=== PATIENT | male | born 1985 | race Caucasian/White ===

== ENCOUNTER 2023-07-18 06:48 | Outpatient (CLI) | payer BC, SELFPAY ==
--- NOTE | ~2023-07-18 | CT_ITS ---
EXAMINATION: CT abdomen pelvis w con DATE: 07/18/2023 07:25 INDICATION: Upper abdominal pain radiating to the right TECHNIQUE: Computed tomography (CT) of the abdomen and pelvis was performed with 100 CC Omnipaque 350 intravenous contrast. Automated exposure control and iterative reconstruction technique were employe d. Exam dose: 520.32 mGy-cm total exam DLP. COMPARISON: 03/20/2011 CT abdomen pelvis FINDINGS: Lung bases are clear. Normal heart size. No pericardial or pleural effusion. The gallbladder is contracted. No pericholecystic fluid or fat stranding. No hepatic, splenic, pancreatic, adrenal or renal space-occupying mass lesion is detected. No bile duct or pancreatic duct dilatation. No urinary tract calculus or hydroureteronephrosis. Normal caliber of the abdominal aorta. No intraperitoneal or retroperitoneal or pelvic mass lesion or adenopathy or ascites. The urinary bladder and prostate gland are unremarkable. Normal appendix. No bowel obstruction, bowel wall thickening, pneumatosis or intraperitoneal free air . Very small fat-containing umbilical hernia. Transitional lumbosacral vertebra. No suspicious osteolytic or osteoblastic lesions. IMPRESSION: Contracted gallbladder. Nonfasting gallbladder ultrasound examination would be more sens itive for detection of gallstones, gallbladder wall disease Normal appendix Reviewed, dictated and finalized at Location [facility]. Reviewed, dictated and finalized at location B. TENANCE MANAGER IMPRESSION: Contracted gallbladder. Nonfasting gallbladder ultrasound examinat ion would be more sensitive for detection of gallstones, gallbladder wall disea se Normal appendix
== END 2023-07-18 06:49 | disposition home or self-care (01) ==
PROVIDERS: PCP Emergency Medicine; Visit Provider Emergency Medicine
DX: R10.10 Upper abdominal pain, unspecified (principal); K42.9 Umbilical hernia without obstruction or gangrene
CPT/HCPCS: 74177; Q9967

== ENCOUNTER → 2023-08-02 08:49 | Outpatient (CLI) | payer BC, SELFPAY ==
--- NOTE | ~2023-08-02 | US_ITS ---
Limited Abdominal Sonogram: Real-time sonographic imaging of the right upper quadrant was performed. Clinical History: Cholecystitis Findings: The liver appears normal with no evidence of mass lesion or bile duct dilatation. Main por elvira vein demonstrates normal direction of flow. The gallbladder is well distended, and appears normal with no evidence of gallstone or wall thickening. The common bile duct measures 4 mm. The visualize d pancreas, aorta, and IVC are unremarkable. Impression: No significant abnormality seen. Reviewed, dictated and finalized at location . Impression: No significant abnormality seen.
== END ==
PROVIDERS: PCP Emergency Medicine; Visit Provider Surgery
DX: K81.9 Cholecystitis, unspecified (principal)
CPT/HCPCS: 76705

== ENCOUNTER 2023-08-06 08:06 | Outpatient (CLI) | payer BC, SELFPAY ==
--- NOTE | ~2023-08-06 | NM_ITS ---
EXAMINATION: NM hepatobiliary w pharm DATE: 08/06/2023 10:57 INDICATION: Cholecystitis. COMPARISON: CT abdomen and pelvis 07/18/2023, abdomen ultrasound 08/02/2023 TECHNIQUE: 4.7 mCi Tc-99m mebrofenin (Choletec) was administered intravenously. Scintigraphic images of the abdomen were obtained for one hour. Then, 1.6 mcg sincalide (Kinevac) IV was administered, an d imaging was continued for 30 minutes. FINDINGS: There is normal clearance of radiotracer from the blood pool. There is homogeneous tracer u ptake by the liver. Activity progresses to the bowel and gallbladder. Gallbladder ejection fraction (GBEF) was 95%. Note that most patients with gallbladder dysfunction have GBEF < 35%, which overlaps with the broad normal range of 10-90%. IMPRESSION: 1. Normal hepatobiliary scintigraphy. Reviewed, dictated and finalized at location E. RVOIR ENGINEERING MANAGER
== END 2023-08-06 08:07 | disposition home or self-care (01) ==
PROVIDERS: PCP Emergency Medicine; Visit Provider Surgery
DX: K81.9 Cholecystitis, unspecified (principal)
CPT/HCPCS: 78227; A9537; J2805

== ENCOUNTER 2023-08-11 10:30 | Outpatient (CLI) | payer BC, SELFPAY ==
--- NOTE | 2023-08-11 10:52 | ECG_ITS ---
Measurements Intervals [place] Rate: 59 P: 5 HI: 129 QRS: 22 QRSD: 101 T: 32 QT: 404 QTc: 401 Interpretive Statements SINUS BRADYCARDIA INCOMPLETE RIGHT BUNDLE BRANCH BLOCK BORDERLINE ECG NO PREVIOUS ECG AVAILABLE FOR COMPARISON Electronically Signed On 08-11-2023 13:09:46 TRANSIT OPERATOR by Callum Gray D.O.
[2023-08-11 12:08] LABS: Alanine Aminotransferase 19 U/L (6-50); Albumin Level 4.6 g/dL (3.5-5.1); Alkaline Phosphatase 70 U/L (38-126); Amylase 73 U/L (30-110); Aspartate Amino Transferase 21 U/L (17-59); Bilirubin,Total 1.1 mg/dL (0.2-1.3); Lipase 103 U/L (23-300)
== END 2023-08-11 10:31 | disposition home or self-care (01) ==
PROVIDERS: PCP Emergency Medicine; Visit Provider Surgery
DX: K81.1 Chronic cholecystitis (principal); Z87.891 Personal history of nicotine dependence; Z01.818 Encounter for other preprocedural examination; I45.10 Unspecified right bundle-branch block
CPT/HCPCS: 36415; 80076; 82150; 83690; 93005

== ENCOUNTER 2023-08-15 03:38 | Day surgery (SDC) | payer BC, SELFPAY ==
[2023-08-09 13:52] VITALS: BMI 25.1
--- NOTE | 2023-08-09 13:58 | PC.NURSE ---
Report to the Outpatient Waiting Room, entrance under the green pavilion located off [facility], at time 11:00 on date 08/15/23. Planned Procedure Time: 1:00. Time changes happen often and if your time is changed the preop area will call you the afternoon before. - You and your visitor will be asked to self-screen and do not enter if you have any COVID symptoms. - A mask is optional within the hospital at this time. Patients may have clear liquids (water, carbonated beverages, clear teas, apple juice) until 3 hours prior to surgery (10:00) with a maximum of 20 ounces. - No food from midnight until time of surgery Take the following medications with a SIP of water the morning of surgery: PAIN PILL/KLONOPIN IF NEEDED DO NOT STOP ANY OF YOUR OTHER PRESCRIPTION MEDICATIONS PRIOR TO SURGERY ?EXCEPT THE FOLLOWING Medications to discontinue per physician: N/A Date to take last dose: N/A Please no make-up, nail german, hairspray, perfume, deodorant, or body powder the day of surgery. No jewelry (including any body piercings) or valuables the day of surgery, leave them at home. Please take a shower or bath the night before, or the morning of, surgery with an antibacterial soap. Wear comfortable, loose fitting clothing. - Jewelry must be removed prior to entering the operating room. Rings and piercings that are not removed may be cut off. - The hospital will not accept responsibility for valuables. - Please leave all valuables, including medications, at home the day of surgery. If you are going home after surgery, a licensed route driver must drive you home. - NO public transportation without another adult if you receive anesthesia. - We recommend that an adult stay with you for 24 hours following discharge. - We also recommend that you do not drive, make important decision, drink alcoholic beverages, or take any drugs that were not prescribed by your health care provider for at least 24 hours after your discharge time. Follow any additional instructions given to you from your surgeon. If you or anyone in your household have experienced Covid symptoms in the past week, please notify your surgeon or the nurse liaison at the phone number below for possible testing. Telephone instructions given to PT - INNA SOLIS and asked if any additional questions and then verbalized understanding. Patient advised to call surgeon office or pre surgery nurse liaison [phone] if any additional questions.
[2023-08-15] VITALS (9 sets, daily range): BP systolic 95–128; BP diastolic 51–99; PULSE 59–80; RESP 12–18; TEMP 36.1–36.3; O2SAT 99–100; BMI 25.1
--- NOTE | 2023-08-15 09:01 | WPDANESEPPF ---
Anes - Initial Pre Proc Eval Procedure: Operation Date: 08/15/23 13:00 Proposed Procedures p Laparoscopic Cholecystectomy - Collin Sanders MD Date/Time: 08/15/23 09:01 Surgeon: Collin Sanders MD Pre Op Diagnosis: Acalculous chronic cholecystitis Patient Data Age: 37 Gender: M Height: 1.8 m Weight: 81.65 kg Allergies Allergy/AdvReac Type Severity Reaction Status Date / Time No Known Allergies Allergy Verified 08/15/23 11:33 Home Medications Medication Instructions Recorded Confirmed Type clonazepam 0.5 mg tablet (Klonopin) 0.5 mg PO HS 07/30/23 08/09/23 History hydrocodone 5 mg-acetaminophen 325 1 tablet PO Q8H PRN Pain 07/30/23 08/09/23 History mg tablet Patient hx anesthesia problems: none Family hx anesthesia problems: none Results Review: All pre-operative results and documents have been reviewed as part of the pre-operative evaluation. 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 Informed Consent: The patient's anesthetic plan and its attendant risks and benefits were discussed with the patient/family/POA. Questions were solicited and answers provided to the satisfaction of the patient/family/POA.
--- NOTE | 2023-08-15 11:43 | WPDHPUPDATE1 ---
History and Physical Update Update Date/Time: 08/15/23 11:43 History and Physical has been reviewed, including an updated exam of the patient. There are NO changes in the patient's condition. Risks, benefits, and alternatives have been discussed and questions answered. Patient agrees to proceed with procedure.
[2023-08-15] MEDS: KETOROLAC 15 MG/ML VIAL (*BKC) IV PUSH (11:48)
[2023-08-15] MEDS: ACETAMINOPHEN 500 MG TABLET 1000 MG PO (11:48)
[2023-08-15] MEDS: LACTATED RINGERS 1,000 ML 30 ML IV CONT ×2 (11:49→13:21)
[2023-08-15] MEDS: ceFAZolin 2 GM/D5W 50 ML 2 GM/50 ML BAG IVPB (12:13)
[2023-08-15] MEDS: BUPIVACAINE/EPINEPHRINE 0.5% 30 ML VIAL INFILTRATE (12:55)
--- NOTE | 2023-08-15 13:15 | W.PM.PROC2 ---
Procedure Note - Detailed Date of Procedure 08/15/23 Pre-op Diagnosis Acalculous chronic cholecystitis Post-op Diagnosis Same Procedure Performed Laparoscopic cholecystectomy Surgeon Collin Sanders MD Turf Farm Worker Teena Mayes [facility] Anesthesia General and Local (0.5% Marcaine with epinephrine) Indications Patient has had a long lasting problem with intermittent epigastric and right upper quadrant pain associated with nausea. This comes on usually after fatty meals. He had an ultrasound which did not show gallstones. He had a HIDA scan which was normal. Despite these normal findings, the patient's symptoms are strongly suggestive of chronic acalculous cholecystitis. We discussed this and he is now taken to surgery for laparoscopic cholecystectomy. Findings Mild chronic inflammation, no stones noted Description of Procedure Patient was taken to surgery and induced into general anesthesia. The abdomen is prepped and draped. Trocars were placed in the usual fashion using InvenSense optical trocars and a 5 mm camera. Once insufflation was adequate, the patient was placed in reverse Trendelenburg. The gallbladder was easily found. A laparoscopic aspirator was used to decompress the gallbladder. The cholecystotomy was closed with a Vicryl endoloop. The gallbladder was then retracted anterosuperiorly. Traction was placed on the infundibulum. Dissection was carried out in the cholecystohepatic triangle. The tissues here were tough for an more fibrotic than 1 would expect, consistent with chronic inflammation. The cystic duct and cystic artery were dissected out very clearly. The gallbladder was dissected off the liver at its lower half. Critical view was achieved. I then securely clipped and divided the cystic duct and cystic artery. I divided the remaining peritoneal attachments of the gallbladder to the liver. Gallbladder was placed in an Endo-Catch bag and retrieved through the 10 11 epigastric trocar site. I replaced the epigastric trocar we reviewed the right upper quadrant. Irrigation and suctioning were carried out. A little additional cautery was carried out as well. All looked good with no evidence of bleeding or bile leakage. We then evacuated CO2 and removed the trocar sleeves. Skin wounds were closed with subcuticular running 4-0 Monocryl skin suture. The wounds were dressed with Exofin surgical adhesive. Patient was awakened and taken to recovery in good condition. Sponge needle counts were correct x2. Estimated Blood Loss -5 Drains No Packing No Pathology Yes (Gallbladder) Complications No immediate complications Condition Stable Disposition PACU [facility] Billing Surgery - Charge Forward: Surgery Billing (Laparoscopic cholecystectomy)
[2023-08-15] MEDS: fentaNYL CITRATE INJ (*CRX) 100 MCG/2 ML VIAL 25 MCG IV PUSH ×4 (13:57→14:10)
[2023-08-15] MEDS: ONDANSETRON INJ 4 MG/2 ML VIAL IV PUSH (13:57)
[2023-08-15] MEDS: oxyCODONE HCL (*CRX) 5 MG TAB IR PO (14:30)
== END 2023-08-15 15:15 | disposition home or self-care (01) ==
PROVIDERS: PCP Emergency Medicine; Visit Provider Surgery
PROC: 0FT44ZZ Resection of Gallbladder, Percutaneous Endoscopic Approach (ICD-10-PCS; CPT 47562; principal; 2023-08-15 13:00)
DX: K80.10 Calculus of gallbladder with chronic cholecystitis without obstruction (principal); F41.9 Anxiety disorder, unspecified; Z79.891 Long term (current) use of opiate analgesic; Z87.891 Personal history of nicotine dependence
CPT/HCPCS: 47562; 36415; 80076; 82150; 83690; 88304; 93005; A9270; J0690; J1100; J1885; J2250; J2405; J2704; J3010; J7120